=== PATIENT | female | born 1960 | race Caucasian/White ===

== ENCOUNTER → 2017-05-12 | Outpatient (CLI) | payer OTHER ==
[2017-05-12 12:36] LABS: BASO % 0.3 %; BASO ABS # 0.01 K/uL (0-0.2); EOS % 1.6 %; EOS ABS # 0.05 K/uL (0-0.5); HEMATOCRIT 38.6 % (37-47); LYMPH % 42.9 %; LYMPH ABS # 1.36 K/uL (1.2-3.4); MEAN CELL VOLUME 87.3 fL (80-100); MEAN CORPUSCULAR HEMOGLOBIN 29.4 pg (25-34); MEAN CORPUSCULAR HGB CONC 33.7 g/dl (32-36); MEAN PLATELET VOLUME 9.9 fL (7.4-10.4); MONO % 7.9 %; MONO ABS # 0.25 K/uL (0.11-0.59); NEUT % 47.3 %; PLATELET COUNT 180 K/uL (130-400); RED CELL DISTRIBUTION WIDTH CV 12.7 % (11.5-14.5); WHITE BLOOD COUNT 3.17 K/uL (4.8-10.8)
[2017-05-12 15:15] LABS: ALBUMIN 3.7 gm/dl (3.4-5.0); ALT/SGPT 45 U/L (12-78); AST/SGOT 27 U/L (15-37); BLOOD UREA NITROGEN 19 mg/dl (7-18); CALCIUM 9.3 mg/dl (8.5-10.1); CARBON DIOXIDE 29 mmol/L (21-32); CREATININE 0.78 mg/dl (0.60-1.20); GLUCOSE 95 mg/dl (70-99); POTASSIUM 4.1 mmol/L (3.5-5.1); SODIUM 137 mmol/L (136-145); TOTAL PROTEIN 6.8 gm/dl (6.4-8.2)
[2017-05-12 15:28] LABS: ALKALINE PHOSPHATASE 54 U/L (45-117); CHOLESTEROL 162 mg/dl (0-200); LDL CHOLESTEROL CALCULATED 79 mg/dl
== END | disposition home or self-care (01) ==
LOC: C.LABMFLN 09:29
PROVIDERS: ATTEND Physician Assistant
DX: K21.9 Gastro-esophageal reflux disease without esophagitis (principal); E78.5 Hyperlipidemia, unspecified; K58.9 Irritable bowel syndrome, unspecified; G43.909 Migraine, unspecified, not intractable, without status migrainosus; Z92.29 Personal history of other drug therapy

== ENCOUNTER → 2017-06-17 | Outpatient (CLI) | payer OTHER ==
[2017-06-19 15:31] LABS: ANA SCREEN TC 249X POSITIVE (NEGATIVE)
== END | disposition home or self-care (01) ==
LOC: C.LABMFLN 10:34
PROVIDERS: ATTEND Family Medicine
DX: K21.9 Gastro-esophageal reflux disease without esophagitis (principal); M19.90 Unspecified osteoarthritis, unspecified site

== ENCOUNTER → 2017-06-19 | Outpatient (CLI) | payer OTHER ==
--- NOTE | 2017-06-19 12:17 | DIAGNOSTIC IMAGING REPORT ---
GALLBLADDER-ABD LIMITED CLINICAL HISTORY: R10.9 Abdominal [id number] pain. Nausea. TECHNIQUE: Ultrasound COMPARISON STUDY: None FINDINGS: Normal gallbladder. Common mild duct 3 mm. Liver is uniform. Pancreas is unremarkable. There is no dilatation of the pancreatic duct. Right kidney is negative for hydronephrosis. IMPRESSION: Normal study The above report was generated using voice recognition software. It may contain grammatical, syntax or spelling errors. Electronically signed by: Shilo Hu M.D. 06/19/2017 12:16 PM Dictated Date/Time: 06/19/2017 12:15 PM
== END | disposition home or self-care (01) ==
LOC: C.ULTR 11:41
PROVIDERS: ATTEND Family Medicine
DX: R10.9 Unspecified abdominal pain (principal)

== ENCOUNTER → 2017-06-24 | Outpatient (CLI) | payer OTHER ==
[2017-06-29 02:23] LABS: ANA SCREEN TC 249X POSITIVE (NEGATIVE); ANTI-SS-A <1.0 NEG AI (<1.0 NEG); ANTI-SS-B <1.0 NEG AI (<1.0 NEG); ANTICARDIOLIPID AB IGA <11 APL (< = 11); COMPLEMENT C3 TC 44859W 106 MG/DL (90-180); COMPLEMENT C4 TC 44982E 30 MG/DL (16-47); MICROSOMAL AB 7 IU/ML (<9)
== END | disposition home or self-care (01) ==
LOC: C.LABMFLN 13:14
PROVIDERS: ATTEND Family Medicine
DX: R76.8 Other specified abnormal immunological findings in serum (principal)

== ENCOUNTER → 2017-07-14 | Outpatient (CLI) | payer OTHER ==
[~2017-07-14] MED LIST: SINCALIDE INJ 1.3 MCG in SODIUM CHLORIDE 0.9% 100ML 100 ML IV ONE
--- NOTE | 2017-07-14 15:40 | DIAGNOSTIC IMAGING REPORT ---
NUCLEAR MEDICINE HEPATOBILIARY SCAN WITH EJECTION FRACTION HISTORY: EPIGASTRIC PAIN, ABD DISTENTION,BLOATING,BELCHING COMPARISON: Abdominal ultrasound 06/19/2017. TECHNIQUE: Immediately following the intravenous administration of 5.5 mCi Tc-99m Choletec, dynamic anterior abdominal imaging pre/post 1.3 mcg of Kinevac was performed. FINDINGS: Uniform hepatic tracer accumulation is shown. Prompt intrahepatic biliary excretion is seen. The gallbladder, common bile duct, and small bowel are all visualized by 30 minutes. This appearance represents the normal sequence of biliary excretion. The gall bladder ejection fraction following administration of Kinevac was 38% (normal >35%). IMPRESSION: 1. No evidence for cystic duct obstruction. 2. Gallbladder ejection fraction calculated to be 38 %. Electronically signed by: Lj Gaming M.D. 07/14/2017 3:39 PM Dictated Date/Time: 07/14/2017 3:38 PM
== END | disposition home or self-care (01) ==
LOC: C.NUCL 12:27
PROVIDERS: ATTEND Internal Medicine Gastroenterology
DX: R14.2 Eructation (principal); R14.0 Abdominal distension (gaseous); R10.13 Epigastric pain

== ENCOUNTER → 2017-09-09 | Outpatient (CLI) | payer OTHER ==
--- NOTE | 2017-09-09 15:31 | DIAGNOSTIC IMAGING REPORT ---
R HAND MIN 3 VIEWS ROUTINE CLINICAL HISTORY: M70.70 Hip qmtockmyS36.8 TEETEE [id number] Bilateral hand pain COMPARISON: None. DISCUSSION: There is mild periarticular osteopenia. No acute fractures are visualized. There is no evidence of erosive disease. IMPRESSION: 1. Mild periarticular osteopenia 2. No evidence of fracture 2. No evidence of erosive disease Electronically signed by: Sukumar Redman M.D. 09/09/2017 3:30 PM Dictated Date/Time: 09/09/2017 3:29 PM
--- NOTE | 2017-09-09 15:37 | DIAGNOSTIC IMAGING REPORT ---
LEFT HAND 3 VIEWS HISTORY: M70.70 Hip aagldonyT23.8 TEETEE [id number] Bilateral hand pain COMPARISON: None. FINDINGS: There is no fracture or dislocation. Soft tissues are unremarkable. There is mild periarticular osteopenia. No erosions identified. Moderate osteoarthritis at the first carpometacarpal joint. IMPRESSION: 1. Mild periarticular osteopenia. 2. No erosive changes. 3. Moderate osteoarthritis at the first carpometacarpal joint. Electronically signed by: Lj Gaming M.D. 09/09/2017 3:35 PM Dictated Date/Time: 09/09/2017 3:34 PM
== END | disposition home or self-care (01) ==
LOC: C.RAD1850 14:56
PROVIDERS: ATTEND Internal Medicine Rheumatology
DX: M70.70 Other bursitis of hip, unspecified hip (principal); M79.641 Pain in right hand; M79.642 Pain in left hand; R76.8 Other specified abnormal immunological findings in serum; M18.12 Unilateral primary osteoarthritis of first carpometacarpal joint, left hand